=== PATIENT | male | born 1950 | race African-American/Black ===

== ENCOUNTER 2016-09-26 08:30 | Inpatient (IN) | payer OTHER ==
[~2016-09-26] VITALS: Ht 180 cm; Wt 87.0 kg
[2016-09-27 05:30] LABS: HCT 34.2 % (42.0-52.0); HGB 11.5 g/dl (13.2-18.0); MCH 30.8 pg (25.0-31.0); MCHC 33.6 g/dL (32.0-36.0); MCV 91.7 fL (78.0-100.0); MPV 9.3 fL (6.0-9.5); RBC 3.73 M/uL (4.70-6.00); RDW 13.7 % (11.5-14.0); WBC 10.6 K/uL (4.0-10.5)
[2016-09-27 05:51] LABS: CREATININE 0.8 mg/dL (0.7-1.2); POTASSIUM 4.2 mmol/L (3.5-5.1)
[2016-09-28 04:36] LABS: HCT 31.3 % (42.0-52.0); HGB 10.5 g/dl (13.2-18.0); MCH 30.7 pg (25.0-31.0); MCHC 33.5 g/dL (32.0-36.0); MCV 91.5 fL (78.0-100.0); MPV 9.4 fL (6.0-9.5); RBC 3.42 M/uL (4.70-6.00); RDW 13.5 % (11.5-14.0); WBC 6.1 K/uL (4.0-10.5)
[2016-09-28 04:57] LABS: CREATININE 0.9 mg/dL (0.7-1.2); POTASSIUM 3.9 mmol/L (3.5-5.1)
[2016-09-29 05:07] LABS: HCT 31.3 % (42.0-52.0); HGB 10.6 g/dl (13.2-18.0); MCH 30.7 pg (25.0-31.0); MCHC 33.9 g/dL (32.0-36.0); MCV 90.7 fL (78.0-100.0); MPV 9.8 fL (6.0-9.5); RBC 3.45 M/uL (4.70-6.00); RDW 13.4 % (11.5-14.0); WBC 5.8 K/uL (4.0-10.5)
[2016-09-29 05:28] LABS: CREATININE 0.8 mg/dL (0.7-1.2); POTASSIUM 4.2 mmol/L (3.5-5.1)
== END 2016-09-29 15:11 | DRG 465 ==
LOC: FMS 11:30
PROVIDERS: Internal Medicine; ADMIT Legal Medicine
PROC: 0SUC09Z Supplement Right Knee Joint with Liner, Open Approach (ICD-10-PCS; 2016-09-26)
PROC: 0SPC09Z Removal of Liner from Right Knee Joint, Open Approach (ICD-10-PCS; principal; 2016-09-26 13:30)
DX: M17.11 Unilateral primary osteoarthritis, right knee (principal); J44.9 Chronic obstructive pulmonary disease, unspecified; I10 Essential (primary) hypertension; E11.9 Type 2 diabetes mellitus without complications; G89.29 Other chronic pain; K21.9 Gastro-esophageal reflux disease without esophagitis; F17.210 Nicotine dependence, cigarettes, uncomplicated; Z22.322 Carrier or suspected carrier of Methicillin resistant Staphylococcus aureus
CPT/HCPCS: 36415; 73560; 80048; 82962; 86850; 86900; 86901; 87070; 87075; 87205; 87640; 87641; 87900; 94010; 94640; 94762; 97110; 97116; 97161; 97165; 97530; 97530-GP; 97535; C1776; J0131; J1100; J1170; J1885; J2270; J2405; J2704; J2710; J2795; J3010; J3370

== ENCOUNTER 2016-09-29 15:18 | Inpatient (IN) | payer OTHER ==
[~2016-09-29] VITALS: Ht 180.3 cm; Wt 87.3 kg
--- NOTE | 2016-10-07 10:27 | NUR ---
DISCUSSED DISCHARGE INSTRUCTIONS WITH PATIENT. LAST DOSE OF XARELTO GIVEN. MEPILEX COVERING INCISION INTACT. PT IN STABLE CONDITION. WILL D/C HOME WITH
--- NOTE | 2016-10-07 11:04 | NUR ---
PT. D/C HOME THIS DATE WITH SPOUSE. PT. HAS A ROLLING WALKER, CANE AND POLAR TIM AND SHOWER BENCH. PT. REQUESTED OUTPT. AT [facility] ([place]). FIRST APPT. IS 10/10/16 @ 11:00 A.M. D/C NOTICE AND QUESTIONNAIRE GIVEN.
== END 2016-10-07 10:33 | disposition home or self-care (01) | DRG 554 ==
LOC: FSNU 15:18
PROVIDERS: ADMIT Legal Medicine
DX: M17.11 Unilateral primary osteoarthritis, right knee (principal); J44.9 Chronic obstructive pulmonary disease, unspecified; I10 Essential (primary) hypertension; Z47.1 Aftercare following joint replacement surgery; Z96.651 Presence of right artificial knee joint; E11.9 Type 2 diabetes mellitus without complications; G89.29 Other chronic pain; K21.9 Gastro-esophageal reflux disease without esophagitis; F17.210 Nicotine dependence, cigarettes, uncomplicated; Z22.322 Carrier or suspected carrier of Methicillin resistant Staphylococcus aureus
CPT/HCPCS: 88305; 88311; 88312; 97110; 97116; 97162; 97166; 97530; 97530-GP; 97535; 97537

== ENCOUNTER 2020-05-05 15:02 | Emergency (ER) | payer MEDICARE, OTHER ==
[~2020-05-05 15:02] MED LIST: AMLODIPINE BESY10 MG PO; BACLOFEN 10MG T10 MG PO; ELAVIL25 MG PO; HYDROCODON-ACE1 EAC6 PO; LIPITOR20 MG PO; LISINOPRIL 10MG10 MG PO; METHADONE 5MG TA5 MG PO; NAPROSYN250 MG PO; OXYCODONE HCL10 MG PO; OXYCODONE HCL15 M1 PO; PHENERGAN6.25 MG/5 PO; PROTONIX 40MG T40 MG PO; SPIRIVA18 MCG INH; TENORMIN50 MG PO; VENTOLIN HFA IN18 GM INH; VITAMIN B-121000 MC1 PO; VITAMIN D400 UNIT PO
[2020-05-05 17:09] LABS: BASOPHIL 0.3 % (0-2); HCT 44.1 % (42.0-52.0); HGB 14.1 g/dl (13.2-18.0); LYMPHOCYTE 32.7 % (15-48); MCH 28.3 pg (25.0-31.0); MCV 88.6 fL (78.0-100.0); MONOCYTE 10.7 % (0-12); MPV 10.1 fL (6.0-9.5); NEUTROPHIL 53.1 % (41-80); NRBC 0; PLT 307 K/uL (150-400); RBC 4.98 M/uL (4.70-6.00); RDW 13.5 % (11.5-14.0); WBC 6.1 K/uL (4.0-10.5)
[2020-05-05 17:17] LABS: BILIRUBIN NEGATIVE (NEGATIVE); BLOOD NEGATIVE Ery/uL (NEGATIVE); CLARITY CLEAR (CLEAR); COLOR YELLOW (YELLOW); GLUCOSE (U) NORMAL (NORMAL); LEUKOCYTES NEGATIVE Leu/uL (NEGATIVE); NITRITE NEGATIVE (NEGATIVE); PROTEIN NEGATIVE (NEGATIVE); UROBILINOGEN 0.2 mg/dL (0.2-1.0)
[2020-05-05 17:35] LABS: ALBUMIN 3.6 g/dL (3.4-5.0); BILIRUBIN - TOTAL 0.2 mg/dL (0.2-1.0); CREATININE 0.93 mg/dL (0.67-1.17); GLOBULIN (CALCULATION) 3.5 g/dL; POTASSIUM 4.1 mmol/L (3.5-5.1); TOTAL PROTEIN 7.1 g/dL (6.4-8.2)
[2020-06-23] MEDS ORDERED: TIZANIDINE HCL4 MG PO (11:29)
[2020-06-23] MEDS ORDERED: OXYCODONE HCL15 M1 PO (11:29)
[2020-06-24] MEDS ORDERED: DIAZEPAM 5MG TAB5 MG PO (13:02)
[2020-08-20] MEDS ORDERED: OXYCODONE HCL15 M1 PO (12:03)
[2020-08-20] MEDS ORDERED: CYCLOBENZAPRINE10 MG PO (12:04)
[2020-10-20] MEDS ORDERED: CYCLOBENZAPRINE10 MG PO (15:25)
[2020-10-20] MEDS ORDERED: OXYCODONE HCL15 M1 PO (15:25)
== END 2020-05-05 19:07 | disposition home or self-care (01) ==
LOC: FER 15:02
PROVIDERS: Nurse Practitioner Family
DX: R06.02 Shortness of breath (principal); I10 Essential (primary) hypertension; M54.9 Dorsalgia, unspecified; G89.29 Other chronic pain; Z79.891 Long term (current) use of opiate analgesic; Z86.19 Personal history of other infectious and parasitic diseases; Z87.891 Personal history of nicotine dependence
CPT/HCPCS: 36415; 71045; 80053; 81003; 85025; 93005

== ENCOUNTER → 2021-02-01 | Day surgery (SDC) | payer MEDICARE, OTHER ==
[~2021-02-01] VITALS: Ht 180.3 cm; Wt 90.9 kg
[~2021-02-01] MED LIST changes: +CARAFATE S500 MG/TSP PO; +CYCLOBENZAPRINE10 MG PO; +DIAZEPAM 5MG TAB5 MG PO; +PREGABALIN25 MG PO; +TIZANIDINE HCL4 MG PO; +WIXELA 100-501 EACH INH
[2021-02-01 12:46] LABS: HCT 45.1 % (42.0-52.0); HGB 14.8 g/dl (13.2-18.0); MCH 31.2 pg (25.0-31.0); MCHC 32.8 g/dL (32.0-36.0); MCV 94.9 fL (78.0-100.0); MPV 9.8 fL (6.0-9.5); RBC 4.75 M/uL (4.70-6.00); WBC 5.7 K/uL (4.0-10.5)
[2021-02-01 13:18] LABS: BUN/CREAT RATIO (CALC) 11.5 RATIO; CREATININE 0.96 mg/dL (0.67-1.17); POTASSIUM 4.2 mmol/L (3.5-5.1)
== END | disposition home or self-care (01) ==
LOC: FAS 11:28
PROVIDERS: Anesthesiology; Legal Medicine
DX: M75.101 Unspecified rotator cuff tear or rupture of right shoulder, not specified as traumatic (principal); M13.811 Other specified arthritis, right shoulder; M75.41 Impingement syndrome of right shoulder; M25.811 Other specified joint disorders, right shoulder; I10 Essential (primary) hypertension; E78.5 Hyperlipidemia, unspecified; J44.9 Chronic obstructive pulmonary disease, unspecified; E11.9 Type 2 diabetes mellitus without complications; K21.9 Gastro-esophageal reflux disease without esophagitis; F17.200 Nicotine dependence, unspecified, uncomplicated; Z88.8 Allergy status to other drugs, medicaments and biological substances; Z79.899 Other long term (current) drug therapy
CPT/HCPCS: 36415; 80048; C1713; J0171; J0690; J1100; J1170; J2250; J2405; J2704; J2795; J3010; J7120